=== PATIENT | female | born 1950 | race African-American/Black ===

== ENCOUNTER → 2016-11-27 | Day surgery (SDC) | payer OTHER ==
[~2016-11-27] MED LIST: 1-ME1LIQ PO; BUPIVACAINE HCL PF 0.5% 10 ML VIAL ONE; GLUCTAB PO; HYDR-2768 PO; ISOSULFAN BLUE 50 MG/5 ML VIAL SQ ONE; KETOROLAC TROMETHAMINE 30 MG/ML (IVP) VIAL IV PUSH ONE; LACTATED RINGER'S 1,000 ML BAG IV ONE; LACTATED RINGER'S 1000 ML INJ 1,000 ML ONE; LISI40TA PO; MIDAZOLAM HCL 2 MG/2 ML VIAL ONE; ONDANSETRON HCL 4 MG/2 ML VIAL IV PUSH ONE; PROPOFOL 200 MG/20 ML AMP IV ONE; SODIUM CHLORIDE 0.9% INJ 10 ML ONE; TAB-TAB PO; TRUS2SOL EACH EYE; ceFAZolin 2 GM PREMIX 50 ML ONE
--- NOTE | 2016-11-27 14:37 | TN ---
cc: BERYL VIRGEN M.D. DATE OF SURGERY: 11/27/2016 PRINCIPAL DIAGNOSIS Right breast cancer. PROCEDURE PERFORMED Right breast needle-localized lumpectomy and right axillary sentinel lymph node biopsy. SURGEON Beryl Virgen MD ANESTHESIA General via LMA device. INDICATION The patient is a 66-year-old -[place] female with a newly diagnosed clinical stage I invasive ductal carcinoma of the right breast. She desires breast conservation and now presents for the procedure. FINDINGS AT THE TIME OF SURGERY A 1 cm nodule was identified which extended from the skin to the pectoralis muscle. It did not appear adherent to the muscle and specimen mammogram did demonstrate a mass and a clip. Three sentinel lymph nodes were identified. #1 was 1+ blue with a count of 504 and #2 was 173 and was 2+ blue. Lymph node #3 was 175 and was not blue. Touch prep analysis was not performed. PROCEDURE After informed consent was obtained and site verification was performed, the patient was brought to the radiology suite where she underwent peritumoral radionuclide injection as well as needle localization of her mass. She was then brought to the major operating room where she underwent general anesthesia via LMA device. She was given a single dose of IV Ancef and sequential compression hose were placed. Lymphazurin was diluted half-strength and 3 ccs was injected in the subareolar right breast with a 5-minute massage. The right breast and arm were then prepped and draped in sterile fashion. The patient also received a single dose of IV Ancef and sequential compression hose were placed. An incision was anesthetized at the inferior aspect of the right axillary hairline using 0.5% Marcaine plain. Both sharp and electrocautery dissection were performed until the clavipectoral fascia was identified and the level I axilla was entered. Three mid level I lymph nodes were identified and one was 2+ blue. Circumferential dissection around this cluster of nodes was performed using the harmonic scalpel and the nodes were then sharply dissected free from each other and tested separately with the findings as noted. Some adjacent axillary tissue was also dissected free from surrounding structures using the harmonic scalpel and this was sent as a permanent specimen. Good hemostasis was noted and the wound was closed using interrupted 3-0 Vicryl subcutaneous sutures and a 4-0 Monocryl subcuticular suture. The lymph nodes did not look suspicious and touch prep was not performed. Attention was then turned to the right breast where a lesion was identified at 8 o'clock 4 cm from the nipple. The skin overlying the mass was anesthetized with 0.5% Marcaine with epinephrine and an ellipse of skin was then included with the lumpectomy specimen. Sharp and electrocautery dissection was then performed until the wire entry point through the skin was identified and secured with a hemostat. The wire was cut off at the skin with pin cutters and a 2-0 silk transfixion suture was placed at the wire entry point into the breast tissue. These two sutures became the lateral margin and the skin was the anterior margin. Sharp and electrocautery dissection was then performed until the mass and surrounding tissue had been dissected free from surrounding structures. A short suture was placed on the superior margin and the specimen was sent to mammography with the findings as noted and was then sent for permanent pathologic evaluation. Inspection of the specimen did demonstrate that the superior and inferior margins appeared somewhat close and each of these was sharply reexcised with a stitch on the new margin. Hemostasis was easily obtained with electrocautery and the wound was closed using interrupted 3-0 Vicryl subcutaneous suture and a 4-0 Monocryl subcuticular suture. Steri-Strips and sterile dressings were applied to both wounds. The patient tolerated the procedure well with minimal blood loss and she was extubated in the operating room and brought to the recovery room in good condition. All sponge and needle counts were correct at the conclusion of the case. MD KUNAL Howard/LATHA /2:00 PM /2:20 PM
== END | disposition home or self-care (01) ==
LOC: ESDC 09:31
PROVIDERS: ATTEND Surgery
DX: C50.911 Malignant neoplasm of unspecified site of right female breast (principal)
CPT/HCPCS: 00400; 01610; 19125; 38525; 38792; 88307; J0690; J1885; J2250; J2405; J3010; J7120; Q9968; 88305

== ENCOUNTER → 2017-08-22 | Day surgery (SDC) | payer OTHER ==
--- NOTE | 2017-08-14 15:30 | MH ---
cc: BERYL VIRGEN DATE OF ADMISSION: 08/22/2017 PRINCIPAL DIAGNOSIS Left breast cancer ATTENDING PHYSICIAN Beryl Virgen MD HISTORY OF PRESENT ILLNESS The patient is a 67-year-old -[place] female who had a right breast lumpectomy and sentinel lymph node biopsy on November 27, 2016, for Stage I invasive ductal carcinoma. 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 She received 4 weeks of whole breast radiation and is currently taking anastrozole. She is followed by Dr. Albarran and Dr. Farah. A bilateral diagnostic mammogram with tomosynthesis as well as left breast ultrasound on July 04 at [facility] demonstrated an enlarging mass in the 2 o'clock location of the left breast 5 cm from the nipple. A screening mammogram in August of 2016 demonstrated the same mass but it appeared stable at that time. A second area of adjacent masses was identified at 1 o'clock, 4 cm from the nipple and these were 5 mm in size. She did not have an MRI prior to her surgery in November. Ultrasound-guided core biopsy of the 1 and 2 o'clock lesions was performed and this demonstrated mucinous carcinoma and the 2 o'clock lesion which was 8 mm in size and atypical ductal hyperplasia in the 1 o'clock lesion. She has opted for mastectomy and now presents for the procedure. MEDICAL PROBLEMS 1. Hypertension. 2. Type 2 wfa-[id number]-omsiriusg diabetes. 3. Hypothyroidism as well. 4. Previous right breast cancer. PRIOR SURGERIES 1. Tubal ligation. 2. Knee surgery. 3. Right breast lumpectomy and sentinel node biopsy. CURRENT MEDICATIONS 1. Metformin 500 mg b.i.d. 2. Lisinopril. ALLERGIES She has no drug allergies. FAMILY HISTORY No family history of carcinoma. REVIEW OF SYSTEMS A 12-point review of systems was noncontributory. PHYSICAL EXAMINATION VITAL SIGNS: She is 5.2 and weighed 174 pounds with a BMI of 31.8. Blood pressure was 120/82, temperature 97.9, heart rate 85, respirations 20. HEENT: Exam was significant for macroglossia. NECK: Exam was unremarkable. CHEST: Clear throughout. CARDIAC EXAM: Normal S1 and S2 with no murmurs, rubs or gallops. BREASTS: Exam revealed fibrocystic change with no discharge or nipple abnormalities. The left breast demonstrated induration at the site of her upper outer biopsy but there were no palpable breast masses. There was a well-healed scar in the right breast and right axilla. ABDOMEN: The abdomen was soft and nontender throughout with no masses. The remainder of her exam was unremarkable. IMPRESSION Ms. 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 She understands the risks and benefits of the procedure and has agreed to proceed. MD KUNAL Howard/SUZI /1:41 PM /3:14 PM
[~2017-08-22] MED LIST changes: +BUPIVACAINE HCL PF 0.25% 30 ML VIAL ONE; -BUPIVACAINE HCL PF 0.5% 10 ML VIAL ONE; +BUPIVACAINE HCL PF 0.5% 30 ML VIAL ONE; +BUPIVACAINE/EPINEPHRINE 0.5% PF 30 ML VIAL ONE; -KETOROLAC TROMETHAMINE 30 MG/ML (IVP) VIAL IV PUSH ONE; +KETOROLAC TROMETHAMINE 30 MG/ML (IVP) VIAL ONE; -LACTATED RINGER'S 1,000 ML BAG IV ONE; -LACTATED RINGER'S 1000 ML INJ 1,000 ML ONE; +oxyCODONE/ACETAMINOPHEN 5 MG/325 MG TAB ONE
--- NOTE | 2017-08-22 12:58 | TN ---
cc: BERYL VIRGEN DATE OF SURGERY 08/22/2017 PRINCIPAL DIAGNOSIS Left breast cancer with history of right breast cancer. PROCEDURE PERFORMED Left mastectomy and left axillary sentinel lymph node biopsy. POSTOPERATIVE DIAGNOSIS Left breast cancer with history of right breast cancer. SURGEON Beryl Virgen MD ANESTHESIA General via LMA device INDICATION The patient is a 67-year-old -[place] female who underwent a right breast lumpectomy and sentinel lymph node biopsy followed by whole breast radiation in November 2016 for a stage I right breast cancer. There was a stable nodule in the left breast noted on imaging at that time, but subsequent followup imaging demonstrated an increase in the size of the left breast nodule. Ultrasound-guided core biopsy demonstrated invasive carcinoma and MRI demonstrated some satellite lesions. She has opted for left mastectomy and now presents for the procedure. FINDINGS AT THE TIME OF SURGERY No gross evidence of left breast cancer was identified. Four sentinel lymph nodes were identified and three of these were enlarged. All were radioactive with no blue dye uptake. Touch prep was not performed. PROCEDURE PERFORMED After informed consent was obtained and site verification was performed, the patient was brought to the radiology suite where she underwent peritumoral radionuclide injection. She was then brought to the major operating room where she underwent general anesthesia via an LMA device. She was given a single dose of IV Ancef and sequential compression hose were placed. The left breast and arm were prepped and draped in a sterile fashion. 150 cc of tumescent solution were injected circumferentially around the breast in the plane between the anterior breast fascia and subcutaneous fat and 30 cc of 0.5% Marcaine with epinephrine were added to the tumescent solution. Sharp dissection was performed in this same plane superiorly to the clavicle, medially to the parasternal area, inferiorly to the anterior rectus sheath, and laterally to the axilla. Electrocautery was then used to dissect the breast tissue off the pectoralis muscle including the pectoralis fascia with the breast specimen. The specimen was oriented with the skin anterior, one short suture superiorly, and one long suture laterally and the breast was then amputated in the axilla and sent for permanent pathologic evaluation. Hemostasis was easily obtained with electrocautery, although one of the medial pectoral perforators did require a 3-0 Vicryl ligation. The clavipectoral fascia was then divided and the level I axilla was entered. Multiple mid level I palpable nodes were identified and these were circumferentially dissected free from surrounding structures using the harmonic scalpel with the counts as noted. Caldwell lymph node #2 was located quite high in level I and was circumferentially dissected free from surrounding structures using the harmonic scalpel. Touch prep was not performed and the long thoracic, medial pectoral, thoracodorsal, and intercostal brachial neurovascular bundles were all identified and remained intact throughout the dissection. A stab wound was then created along the chest wall and a 10-Gabonese round drain was placed in the mastectomy cavity and secured to the skin with a 3-0 nylon suture. The wound was then closed using interrupted 3-0 Vicryl subcutaneous sutures and a 4-0 Monocryl subcuticular suture. Steri-Strips and sterile dressing were applied. The patient tolerated the procedure well with an estimated blood loss of 150 cc and she was extubated and brought to recovery room in good condition. MD KUNAL Howard/HOLLIE /12:36 PM /12:47 PM
== END | disposition home or self-care (01) ==
LOC: ESDC 07:08
PROVIDERS: ATTEND Surgery
DX: C50.912 Malignant neoplasm of unspecified site of left female breast (principal); I10 Essential (primary) hypertension; E11.9 Type 2 diabetes mellitus without complications; Z79.84 Long term (current) use of oral hypoglycemic drugs
CPT/HCPCS: 00400; 01610; 19303; 38525; 88307; J0690; J1885; J2250; J2405; J3010; Q9968